=== PATIENT | male | born 1980 | race Caucasian/White ===

== ENCOUNTER 2017-05-14 09:30 | Emergency (ER) | payer OTHER ==
[~2017-05-14] VITALS: Ht 185.4 cm; Wt 111.1 kg
[2017-05-14] MEDS ORDERED: HYDROCODONE-AP1 EAC6 PO (10:09)
[2017-05-14] MEDS ORDERED: IBUPROFEN 600600 M1 PO (10:09)
[2017-05-14] MEDS ORDERED: CLEOCIN HCL150 MG PO (10:37)
[2017-05-14 10:40] VITALS: BP 126/96
== END 2017-05-14 10:41 | disposition home or self-care (01) ==
LOC: ER 09:30
DX: K02.9 Dental caries, unspecified (principal); K05.10 Chronic gingivitis, plaque induced; F17.210 Nicotine dependence, cigarettes, uncomplicated; Z88.0 Allergy status to penicillin